=== PATIENT | male | born 1985 | race Caucasian/White ===

== ENCOUNTER 2022-09-22 16:38 | Emergency (ER) | payer BC, OTHER ==
[~2022-09-22] VITALS: Ht 175.3 cm; Wt 108.9 kg
[2022-09-22] MEDS ORDERED: IBUP-1493 PO (18:41)
[2022-09-22 19:00] VITALS: BP 133/88
== END 2022-09-22 19:19 | disposition home or self-care (01) ==
LOC: EDH 16:38
DX: M25.511 Pain in right shoulder (principal)
CPT/HCPCS: 73030